=== PATIENT | female | born 1965 | race Caucasian/White ===

== ENCOUNTER 2016-10-10 17:20 | Emergency (ER) | payer OTHER ==
[2016-10-10 17:41] VITALS: BP 124/65
--- NOTE | 2016-10-10 17:57 | UC ---
General HPI - HPI Summary HPI Summary: complaint of blister on her left heel that started yesterday foot was rubbing against her sneakers yesterday area around blister feels swollen and hot to touch hasn't taken any medications for pain - History of Current Complaint Chief Complaint: UCSkin Stated Complaint: SKIN COMPLAINT Time Seen by Provider: 10/10/16 17:50 Hx Obtained From: Patient - Allergy/Home Medications Allergies/Adverse Reactions: Allergies Allergy/AdvReac Type Severity Reaction Status Date / Time No Known Allergies Allergy Verified 10/10/16 17:41 Home Medications: Home Medications Ibuprofen TAB* [Advil TAB*] 400 mg PO Q6H PRN 10/10/16 [History Confirmed ] Multiple Vitamins W/ Minerals [Hair/Skin/Nails] 1 cap PO DAILY 10/10/16 [ History Confirmed 10/10/16] PMH/Surg Hx/FS Hx/Imm Hx Previously Healthy: Yes - Surgical History Surgical History: Yes Surgery Procedure, Year, and Place: c section, laser surgery varicose veins - Family History Known Family History: Negative: Cardiac Disease, Hypertension, Diabetes - Social History Occupation: Employed Full-time Lives: With Family Alcohol Use: None Substance Use Type: None Smoking Status (MU): Current Every Day Smoker Type: Cigarettes Amount Used/How Often: 1 PPD Length of Time of Smoking/Using Tobacco: SINCE AGE 18 YRS. Have You Smoked in the Last Year: Yes Cessation Counseling: Patient Advised to Stop Review of Systems Constitutional: Negative Skin: Other Eyes: Negative ENT: Negative Respiratory: Negative Cardiovascular: Negative Gastrointestinal: Negative Genitourinary: Negative Motor: Negative Neurovascular: Negative Musculoskeletal: Negative Neurological: Negative Psychological: Negative All Other Systems Reviewed And Are Negative: Yes Physical Exam Triage Information Reviewed: Yes Appearance: No Pain Distress, Well-Nourished Vital Signs: Initial Vital Signs Temp 100.4 F 10/10/16 17:38 Pulse 79 10/10/16 17:38 Resp 16 10/10/16 17:38 BP 124/65 10/10/16 17:38 Pulse Ox 100 10/10/16 17:38 Vital Signs Reviewed: Yes Eyes: Positive: Conjunctiva Clear ENT: Positive: Pharynx normal, TMs normal Neck: Positive: No Lymphadenopathy Respiratory: Positive: Lungs clear, Normal breath sounds, No respiratory distress Cardiovascular: Positive: RRR, No Murmur Abdomen Description: Positive: Nontender, Soft Bowel Sounds: Positive: Present Musculoskeletal Exam: Normal Neurological: Positive: Alert Psychological Exam: Normal Skin: Positive: Other - left foot- blister on heel surrounded by 4x6cm area of erythema Course/Dx - Differential Dx - Multi-Symptom Provider Diagnoses: left foot cellulits Discharge - Discharge Plan Condition: Stable Disposition: HOME Prescriptions: Cephalexin CAP* [Keflex CAP*] 500 mg PO QID #28 cap Patient Education Materials: Cellulitis (ED) Forms: *Work Release Referrals: Miguel Ángel Deleon MD [Primary Care Provider] - Additional Instructions: Please start antibiotic as directed Increase fluids and rest Take acetaminophen or ibuprofen for fever or pain Please review your discharge instructions. If your symptoms do not improve please call your primary care provider or return to urgent care. CELLULITIS What is Cellulitis? Cellulitis is a bacterial infection of the skin and, sometimes, of the tissues beneath the skin. The skin normally has many types of bacteria on it, but intact skin is an effective barrier that keeps bacteria from entering and growing within the body. When there is a break in the skin, bacteria can enter the body and grow there, causing infection. The infection usually affects outer layers of the skin first, and then spreads deeper into body tissues. Cellulitis can affect any area of the body covered by skin, but it is most common on the face or lower part of the legs. Symptoms Might Include: Skin redness that increases in size as the infection spreads Tight, glossy, "stretched" appearance of the skin Pain or tenderness of the area The affected area may be warm or hot to the touch A thin red line (along a vein) from the cellulitis toward the heart Fever Chills, shaking Muscle aches pains Joint stiffness because of swelling around a joint Treatment Recommendations: The healthcare provider may have prescribed an antibiotic medicine. The medicine should be taken until it is completely gone, even if you are feeling better. If you stop taking the medicine early, the infection may not be completely gone, and the medication may not work the next time. If the infection is on your arm or leg, keep it elevated. You may use warm, wet compresses to relieve the pain and help healing. Soak a clean cloth in warm water, wring it out a little, and apply it to the affected site. Leave the soak in place for 15 minutes and repeat often throughout the day. Rest until the fever is gone and the pain and redness have lessened. You may take ibuprofen (Motrin, Advil), or acetaminophen (Tylenol) for pain. These will help ease some of the symptoms but will not cure the infection. Call Your Doctor or Return Here IF: Your fever does not go down with treatment, or it increases to more than 101 F. You are not starting to get better with the treatment within 24 to 36 hours. You have increasing pain, swelling, or chills. You feel drowsy and lethargic, or you have vomiting or diarrhea. You find the redness is spreading or there are red streaks coming from the infected area. The joint or bone under the infected skin becomes painful after the skin has started to heal. You have any new symptoms that worry you.
[2016-10-10] MEDS ORDERED: Cephalexin CAP* 500 MG PO ONE (18:00)
== END 2016-10-10 18:11 | disposition home or self-care (01) ==
LOC: UCCORT 17:20
DX: L03.116 Cellulitis of left lower limb (principal); F17.210 Nicotine dependence, cigarettes, uncomplicated
CPT/HCPCS: 99202; A9270-GY; G0463

== ENCOUNTER 2017-03-02 16:57 | Emergency (ER) | payer OTHER ==
[2017-03-02 17:43] VITALS: BP 131/82
--- NOTE | 2017-03-02 17:46 | UC ---
Throat Pain/Nasal Waqar HPI - HPI Summary HPI Summary: 52 y/o female presents to the urgent care c/o sore throat and dry cough for the past 3 day. Pt states pain with swallowing is 6/10 associated with chills. She took Advill 600mg PO this morning to alleviate symptoms. Pt denies fever, SOB, chest pain, N/V/D, abdominal pain, recent lost of weight. She is and everyday smoker. - History of Current Complaint Chief Complaint: UCRespiratory Stated Complaint: ST, COUGH Time Seen by Provider: 03/02/17 17:43 Hx Obtained From: Patient Hx Last Menstrual Period: n/a ?: No Onset/Duration: Gradual Onset, Lasting Days - 3 days, Still Present Severity: Moderate Pain Intensity: 6 Pain Scale Used: 0-10 Numeric Cough: Nonproductive Associated Signs & Symptoms: Positive: Dysphagia. Negative: Hoarseness, Sinus Discomfort, Nasal Discharge, Fever - Epiglottits Risk Factors Epiglottis Risk Factors: Negative - Allergies/Home Medications Allergies/Adverse Reactions: Allergies Allergy/AdvReac Type Severity Reaction Status Date / Time No Known Allergies Allergy Verified 03/02/17 17:43 PMH/Surg Hx/FS Hx/Imm Hx Previously Healthy: Yes - Pt denies PMHX - Surgical History Surgical History: Yes Surgery Procedure, Year, and Place: c section, laser surgery varicose veins - Family History Known Family History: Positive: Cardiac Disease, Hypertension, Diabetes Family History: Lung Cancer, Throat cancer, Dyslipidemia - Social History Occupation: Employed Full-time Lives: With Family Alcohol Use: None Substance Use Type: None Smoking Status (MU): Heavy Every Day Tobacco Smoker Type: Cigarettes Amount Used/How Often: 1 PPD Length of Time of Smoking/Using Tobacco: SINCE AGE 18 YRS. Have You Smoked in the Last Year: Yes Review of Systems Constitutional: Negative Skin: Negative Eyes: Negative ENT: Sore Throat Respiratory: Cough - dry Cardiovascular: Negative Gastrointestinal: Negative Genitourinary: Negative Motor: Negative Neurovascular: Negative Musculoskeletal: Negative Neurological: Negative Psychological: Negative Is Patient Immunocompromised?: No All Other Systems Reviewed And Are Negative: Yes Physical Exam Triage Information Reviewed: Yes Vital Signs: Initial Vital Signs Temp 98.4 F 03/02/17 17:35 Pulse 64 03/02/17 17:35 Resp 18 03/02/17 17:35 BP 131/82 03/02/17 17:35 Pulse Ox 97 03/02/17 17:35 - Additional Comments VITAL SIGNS: Reviewed. GENERAL: Patient is a well developed and nourished female who is sitting comfortable in the examining table. Patient is not in any acute respiratory distress. HEAD AND FACE: No signs of trauma. No ecchymosis, hematomas or skull depressions. No sinus tenderness. EYES: PERRLA, EOMI x 2, No injected conjunctiva, no nystagmus. No photophobia. EARS: Hearing grossly intact. Ear canals and tympanic membranes are within normal limits. MOUTH: Positive pharynx with erythema, no exudates, positive palatal petechiae. B/L tonsillar enlargement with no exudate. Uvula in midline. NECK: Supple, trachea is midline, Positive anterior cervical lymphadenopathy, no JVD, no carotid bruit, no c-spine tenderness, neck with full ROM. No meningeal signs, no Kernig's or brudzinskis signs. CHEST: Symmetric, no tenderness at palpation LUNGS: Clear to auscultation bilaterally. No wheezing or crackles. CVS: Regular rate and rhythm, S1 and S2 present, no murmurs or gallops appreciated. ABDOMEN: Soft, non-tender. No signs of distention. No rebound no guarding, and no masses palpated. Bowel sounds are normal. EXTREMITIES: FROM in all major joints, no edema, no cyanosis or clubbing. NEURO: Alert and oriented x 3. No acute neurological deficits. Speech is normal and follows commands. SKIN: Dry and warm Throat Pain/Nasal Course/Dx - Course Course Of Treatment: 52 y/o female presents to the urgent care c/o sore throat and dry cough for the past 3 day. Pt states pain with swallowing is 6/10 associated with chills. She took Advill 600mg PO this morning to alleviate symptoms. Pt denies fever, SOB, chest pain, N/V/D, abdominal pain, recent lost of weight. She is and everyday smoker.Hx obtained. Rapid strep ordered, result: negative. Viral pharyngitis. Pt Rx ibuprofen PO to alleviates symptoms of pain and swelling. Advised on hand washing to avoid spreading. Pt advised to rest, eat well and avoid strenuous exercise. If symptoms do not improve or worsen advised to return to the urgent care or f/u with her PCP for further evaluation and treatment. Pt understood and agreed - Differential Dx/Diagnosis Differential Diagnosis/HQI/PQRI: Influenza, Laryngitis, Mononucleosis, Otitis Media, Pharyngitis, Sinusitis, Tonsillitis, URI Provider Diagnoses: 1- Viral pharyngitis Discharge - Discharge Plan Condition: Stable Disposition: HOME Prescriptions: Ibuprofen TAB* [Motrin TAB* 800 MG] 800 mg PO Q6H #30 tab Patient Education Materials: Pharyngitis (ED) Referrals: POLO Matthews [Primary Care Provider] - If Needed Additional Instructions: 1-Please take ibuprofen PO q6-8hrs prn as instructed after meals to alleviate pain and swelling. Increase fluid intake, eat well, rest and avoid strenuous exercise 2-If symptoms do not improve or worsen please return to the urgent care or f/u with your PCP for further evaluation and treatment.
== END 2017-03-02 18:08 | disposition home or self-care (01) ==
LOC: UCCORT 16:57
DX: J02.9 Acute pharyngitis, unspecified (principal); F17.210 Nicotine dependence, cigarettes, uncomplicated
CPT/HCPCS: 87651; 99212; G0463

== ENCOUNTER 2017-06-16 08:17 | Emergency (ER) | payer OTHER ==
[2017-06-16 08:38] VITALS: BP 130/81
--- NOTE | 2017-06-16 08:54 | UC ---
[facility] HPI - HPI Summary HPI Summary: DENTAL PAIN X 2 DAYS + SWELLING OF THE LEFT LOWER JAW NO REDNESS, PAIN WITH CHEWING NO FEVER, HAD COLD SYMPTOMS LAST WEEK , BUT SHE IS BETTER NO - History of Current Complaint Chief Complaint: UCGeneralIllness Stated Complaint: ORAL COMPLAINT/ST/[place]/BODY ACHES Time Seen by Provider: 06/16/17 08:39 Hx Obtained From: Patient Hx Last Menstrual Period: n/a Onset/Duration: Gradual Onset, Lasting Days - 2, Still Present Severity: Moderate Pain Intensity: 5 Pain Scale Used: 0-10 Numeric Aggravating Factor(s): Chewing Alleviating Factor(s): Nothing - Allergies/Home Medications Allergies/Adverse Reactions: Allergies Allergy/AdvReac Type Severity Reaction Status Date / Time No Known Allergies Allergy Verified 06/16/17 08:27 PMH/Surg Hx/FS Hx/Imm Hx Previously Healthy: Yes - Surgical History Surgical History: Yes Surgery Procedure, Year, and Place: c section, laser surgery varicose veins - Family History Known Family History: Positive: Cardiac Disease, Hypertension, Diabetes Family History: Lung Cancer, Throat cancer, Dyslipidemia - Social History Alcohol Use: None Substance Use Type: None Smoking Status (MU): Heavy Every Day Tobacco Smoker Type: Cigarettes Amount Used/How Often: 1 PPD Length of Time of Smoking/Using Tobacco: SINCE AGE 18 YRS. Have You Smoked in the Last Year: Yes Household Exposure Type: Cigarettes Review of Systems Constitutional: Negative Skin: Negative Eyes: Negative ENT: Dental Pain Respiratory: Negative Cardiovascular: Negative Is Patient Immunocompromised?: No All Other Systems Reviewed And Are Negative: Yes Physical Exam Triage Information Reviewed: Yes Appearance: Well-Appearing, No Pain Distress, Well-Nourished Vital Signs: Initial Vital Signs Temp 100 F 06/16/17 08:28 Pulse 70 06/16/17 08:28 Resp 20 06/16/17 08:28 BP 130/81 06/16/17 08:28 Pulse Ox 99 06/16/17 08:28 Vital Signs Reviewed: Yes Eye Exam: Normal Eyes: Positive: Conjunctiva Clear ENT: Positive: Normal ENT inspection, Hearing grossly normal, Pharynx normal Dental: Positive: Percussion Tenderness @, Gross Decay/Caries @, Abscess @ - LEFT LOWER JAW. Negative: Dental Fracture @ Respiratory Exam: Normal Respiratory: Positive: Chest non-tender, Lungs clear, Normal breath sounds Cardiovascular: Positive: RRR, No Murmur, Pulses Normal Skin Exam: Normal Dental Complaint Course/Dx - Differential Dx/Diagnosis Provider Diagnoses: DENTAL ABSCESS Discharge - Discharge Plan Condition: Stable Disposition: HOME Prescriptions: Amoxicillin PO (*) [Amoxicillin 875 MG (*)] 875 mg PO BID #20 tab Patient Education Materials: Dental Abscess (ED) Referrals: POLO Matthews [Primary Care Provider] - If Needed Additional Instructions: FOLLOW UP WITH YOUR DENTIST IN 5 DAYS
== END 2017-06-16 08:51 | disposition home or self-care (01) ==
LOC: UCCORT 08:17
DX: K04.7 Periapical abscess without sinus (principal); F17.210 Nicotine dependence, cigarettes, uncomplicated
CPT/HCPCS: 99212; G0463